=== PATIENT | female | born 1955 | race Caucasian/White ===

== ENCOUNTER 2018-06-06 18:01 | Emergency (ER) | payer OTHER ==
[2018-06-06 18:23] LABS: BASOPHILS % (AUTO) 0.4 %; EOSINOPHILS # (AUTO) 0.2 10^3/uL (0.0-0.7); EOSINOPHILS % (AUTO) 1.3 %; HGB - HEMOGLOBIN 13.8 g/dL (12.0-16.0); LYMPHOCYTES # (AUTO) 2.6 10^3/uL (1.5-3.5); LYMPHOCYTES % (AUTO) 22.6 %; MEAN CORPUSCULAR HEMOGLOBIN 31.4 pg (27.0-31.0); MEAN CORPUSCULAR HGB CONC 33.2 g/dL (32.0-36.0); MEAN CORPUSCULAR VOLUME 94.7 fL (81.0-99.0); MEAN PLATELET VOLUME 8.4 fL (7.9-10.8); MONOCYTES # (AUTO) 0.7 10^3/uL (0.0-1.0); MONOCYTES % (AUTO) 6.4 %; NEUTROPHILS % (AUTO) 69.3 %; PLT - PLATELET COUNT 234 10^3/uL (130-450); RED BLOOD COUNT 4.39 10^6/uL (4.20-5.40); RED CELL DISTRIBUTION WIDTH 13.9 % (12.0-15.0); WHITE BLOOD COUNT 11.5 x10^3/uL (4.8-10.8)
[2018-06-06 18:38] LABS: ALBUMIN 4.3 g/dL (3.2-5.5); ALBUMIN/GLOBULIN RATIO 1.4 (1.0-2.2); BILIRUBIN,TOTAL 0.5 mg/dL (0.2-1.0); CALCIUM 9.3 mg/dL (8.5-10.3); CREATININE 0.8 mg/dL (0.4-1.0); TOTAL PROTEIN 7.3 g/dL (6.7-8.2)
[2018-06-06 18:45] LABS: BILIRUBIN,URINE NEGATIVE (NEGATIVE); GLUCOSE, URINE (UA) NEGATIVE (NEGATIVE); KETONES,URINE (UA) NEGATIVE (NEGATIVE); LEUKOCYTE ESTERASE, URINE TRACE (NEGATIVE); NITRITE,URINE NEGATIVE (NEGATIVE); OCCULT BLOOD,URINE NEGATIVE (NEGATIVE); PROTEIN,URINE NEGATIVE (NEGATIVE); UROBILINOGEN,URINE 0.2 (NORMAL) E.U./dL (NORMAL)
[2018-06-06 18:48] LABS: CLARITY,URINE CLEAR (CLEAR)
[2018-06-06 18:58] LABS: BACTERIA,URINE None Seen /HPF (None Seen); RBC,URINE 0-5 /HPF (0-5); SQUAMOUS EPITHELIAL CELL,UR RARE Squamous (<= Few)
--- NOTE | 2018-06-06 19:57 | ED Physician Documentation ---
PD HPI ABD PAIN - Stated complaint Stated Complaint: ABD,BACK PX/VOM - Chief complaint Chief Complaint: Abd Pain - History obtained from History obtained from: Patient - History of Present Illness Timing - onset: How many hours ago (2), Today Timing - duration: Hours (2) Timing - details: Abrupt onset Quality: Cramping, Aching, Pain Location: RUQ, Epigastric Radiation: Upper back Improved by: No: Eating, Vomiting Worsened by: Eating Associated symptoms: Nausea, Vomiting. No: Fever, Hematemesis, Diarrhea, Loss of appetite Similar symptoms before: No diagnosis (She had an episode like this last fall that lasted for a day and then improved. She went to her primary care doctor the following Thursday and had some blood tests done. No definitive diagnosis at the primary care suggested possible pancreatitis. The patient has felt okay in the interval time, with normal food tolerance.) Review of Systems Constitutional: reports: Myalgias. denies: Fever, Chills Nose: denies: Rhinorrhea / runny nose, Congestion Throat: denies: Sore throat Respiratory: denies: Cough GI: reports: Abdominal Pain, Nausea, Vomiting. 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[employer] SERVICES: None : None HEENT: None Psych: None Musculoskeletal: None Derm: None - Past Surgical History Past Surgical History: Yes /[employer]: Dilation and currettage HEENT: Tonsil/Adenoidectomy - Present Medications Home Medications: Ambulatory Orders Medication Instructions Recorded Confirmed Famotidine 20 mg PO DAILY #30 tablet 06/06/18 Ondansetron Odt [Zofran] 4 mg TL Q6H PRN #10 tablet 06/06/18 Oxycodone HCl/Acetaminophen 1 - 2 each PO Q6H PRN #14 tablet 06/06/18 [Percocet 5-325 mg Tablet] - Allergies Allergies/Adverse Reactions: Allergies Allergy/AdvReac Type Severity Reaction Status Date / Time No Known Drug Allergies Allergy Verified 06/06/18 18:09 - Social History Does the pt smoke?: Yes Smoking Status: Former smoker Does the pt drink ETOH?: Yes ETOH Use: Wine Does the pt have substance abuse?: No - Immunizations Immunizations are current?: Yes - POLST Patient has POLST: No PD ED PE NORMAL - Vitals Vital signs reviewed: Yes - General General: Alert and oriented X 3, Well developed/nourished, Other (Appears in pain and uncomfortable due to nausea. She is holding an emesis bag.) - HEENT HEENT: PERRL (Nonicteric) - Neck Neck: Supple, no meningeal sign, No adenopathy - Cardiac Cardiac: RRR, No murmur - Respiratory Respiratory: Clear bilaterally - Abdomen Abdomen: Normal bowel sounds, Soft, Non distended, No organomegaly, Other (Tender in the epigastric and right upper quadrant with some local guarding. There is mild percussion tenderness. There is no rebound. She does have a M urphy sign.) - Female Female : Deferred - Rectal Rectal: Deferred - Back Back: No CVA TTP - Derm Derm: Normal color, Warm and dry - Extremities Extremities: Normal ROM s pain, No edema, No calf tenderness / cord - Neuro Neuro: Alert and oriented X 3, No motor deficit, Normal speech Results - Vitals Vitals: Vital Signs - 24 hr 06/06/18 06/06/18 06/06/18 18:06 19:38 20:43 Temperature 36.4 C L 36.7 C Heart Rate 74 61 69 Respiratory 18 18 14 Rate Blood Pressure 130/66 117/64 140/71 H O2 Saturation 97 100 100 06/06/18 06/06/18 21:10 21:58 Temperature 36.5 C Heart Rate 73 84 Respiratory 20 17 Rate Blood Pressure 119/78 129/79 O2 Saturation 95 96 Oxygen O2 Source Room air - Labs Labs: Laboratory Tests 06/06/18 06/06/18 06/06/18 18:15 18:15 18:28 WBC 11.5 H RBC 4.39 Hgb 13.8 Hct 41.6 MCV 94.7 MCH 31.4 H MCHC 33.2 RDW 13.9 Plt Count 234 MPV 8.4 Neut # (Auto) 8.0 H Lymph # (Auto) 2.6 [place] # (Auto) 0.7 Eos # (Auto) 0.2 Baso # (Auto) 0.0 Absolute Nucleated RBC 0.00 Nucleated RBC % 0.0 Sodium 137 Potassium 3.9 Chloride 100 L Carbon Dioxide 27 Anion Gap 10.0 BUN 21 H Creatinine 0.8 Estimated GFR (MDRD) 73 L Glucose 118 H Calcium 9.3 Total Bilirubin 0.5 AST 18 ALT 24 Alkaline Phosphatase 72 Total Protein 7.3 Albumin 4.3 Globulin 3.0 Albumin/Globulin Ratio 1.4 Lipase 29 Urine Color LT. YELLOW Urine Clarity CLEAR Urine pH 6.0 Ur Specific [place] 1.015 Urine Protein NEGATIVE Urine Glucose (UA) NEGATIVE Urine Ketones NEGATIVE Urine Occult Blood NEGATIVE Urine Nitrite NEGATIVE Urine Bilirubin NEGATIVE Urine Urobilinogen 0.2 (NORMAL) Ur Leukocyte Esterase TRACE H Urine RBC 0-5 Urine WBC 4-5 Ur Squamous Epith Cells RARE Squamous Urine Bacteria None Seen Ur Microscopic Review INDICATED Urine Culture Comments INDICATED - Rads (name of study) abd RUQ Radiology: Prelim report reviewed (Nonmobile gallstone lodged near the neck of the gallbladder. There is sludge present as well. There is no wall thickening nor pericholecystic fluid. The common bile duct is normal.), EMP read contemporaneously, See rad report PD MEDICAL DECISION MAKING - ED course Complexity details: reviewed results, re-evaluated patient (She is feeling better with medications. Your results are suggestive of biliary colic given some sludge and stones. She did not get much direct relief with antacid.), considered differential (Abruptness of the symptoms and location would be suggestive of biliary colic. Alternatives would be gastritis or ulcer or pancreatitis.), d/w patient, d/w family (spouse) Departure - Departure Disposition: 01 Home, Self Care Clinical Impression: Biliary colic Abdominal pain Qualifiers: Abdominal location: upper abdomen, unspecified Qualified Code(s): R10.10 - Upper abdominal pain, unspecified Condition: Stable Record reviewed to determine appropriate education?: Yes Instructions: ED Gallstone W Biliary Colic Prescriptions: Famotidine 20 mg PO DAILY #30 tablet Ondansetron Odt [Zofran] 4 mg TL Q6H PRN #10 tablet PRN Reason: Nausea / Vomiting Oxycodone HCl/Acetaminophen [Percocet 5-325 mg Tablet] 1 - 2 each PO Q6H PRN #14 tablet PRN Reason: pain Comments: Your abdominal pain and symptoms sound suspicious for gallbladder spasm. Your ultrasound does show some sludge and gallstone near the neck of the gallbladder. This is common enough finding but would correlate with the precipitators for gallbladder spasms. Your pancreas and liver numbers look good on blood tests. It is possible he could have some stomach inflammation as a cause of your symptoms as well. So we can treat with some acid reducing medicine. Also I am prescribing some antiemetic and pain medicine to use for episodic pain. Follow-up with your primary care if they want to further investigate the gallbladder or refer you to a surgeon for discussion about it. Discharge Date/Time: 06/06/18 22:07
[2018-06-06] MEDS ORDERED: KETOROLAC 15 MG/ML VIAL IVP STA (20:21)
[2018-06-06] MEDS ORDERED: FAMOTIDINE 20 MG/2 ML VIAL IVP STA (20:21)
[2018-06-06] MEDS ORDERED: ONDANSETRON 4 MG/2 ML VIAL IVP STA (20:21)
[2018-06-06] MEDS ORDERED: MORPHINE 10 MG/ML VIAL IVP STA ×2 (20:21→21:45)
[2018-06-06] MEDS ORDERED: SODIUM CHLORIDE 0.9% 1,000 ML IV ONE (20:21)
[2018-06-06] MEDS ORDERED: MAG HYDROX/AL HYDROX/SIMETH 30 ML UDC PO STA (20:22)
[2018-06-06] MEDS ORDERED: oxyCODONE/ACET 5/325 Prepack 4 PO STA (21:45)
[2018-06-06] MEDS ORDERED: ONDANSETRON ODT 4 MG Prepack 2 TL PRN (21:45)
--- NOTE | 2018-06-06 21:50 | Ultrasound Report ---
Reason: upper abd pain after hamburger Procedure Date: 06/06/2018 Accession Number: [id number] / [id number] Procedure: US - Abdomen Limited CPT Code: FULL RESULT: EXAM: ABDOMEN ULTRASOUND LIMITED, RIGHT UPPER QUADRANT. EXAM DATE: 06/06/2018 09:00 PM. CLINICAL HISTORY: Upper abdominal pain after hamburger. COMPARISON: None. TECHNIQUE: Real-time scanning was performed with static images obtained. FINDINGS: Liver: Heterogeneous and hyperechoic liver. No mass or intrahepatic bile duct dilation. Liver measures 16.6 cm. Main portal vein flow: Hepatopetal. Gallbladder: Gallstones are noted. 1.4 cm non-mobile stone in the gallbladder neck. Sludge is present. Additional stones and sludge are noted at the gallbladder fundus. No gallbladder wall thickening. Per report, the patient had right upper quadrant pain during imaging. Biliary System: CBD measures 4 mm. No intrahepatic or extrahepatic ductal dilatation. Right kidney: 9.9 cm. No hydronephrosis. Other: Suboptimal visualization of the structures due to bowel gas and body habitus. IMPRESSION: 1. Echogenic fatty liver. No mass. 2. Gallstones. Impacted stone noted in the gallbladder neck. No abdominal wall thickening. Equivocal sonographic Argueta sign. 3. Normal common bile. [facility]
[2018-06-06 21:59] VITALS: BP 129/79
== END 2018-06-06 22:07 | disposition home or self-care (01) ==
LOC: ED 18:01
DX: K80.20 Calculus of gallbladder without cholecystitis without obstruction (principal); K82.8 Other specified diseases of gallbladder; Z87.891 Personal history of nicotine dependence
CPT/HCPCS: 36415; 76705; 80053; 81001; 83690; 85025; 87086; 96374; 96375; 96376; 99284; A9270; 81003